=== PATIENT | female | born 1980 | race Hispanic/Latino ===

== ENCOUNTER 2021-03-30 05:41 | Observation (INO) | payer OTHER ==
[2021-03-29 12:37] LABS: BASOPHILS % (AUTO) 0.8 % (0.0-5.0); HEMATOCRIT 40.8 % (36-48); LYMPHOCYTES % (AUTO) 32.4 % (21.0-51.0); MEAN CORPUSCULAR HEMOGLOBIN 29.5 pg (27.0-33.0); MEAN CORPUSCULAR HGB CONC 33.1 g/dL (32.0-36.0); MEAN CORPUSCULAR VOLUME 89.3 fL (79-99); MONOCYTES % (AUTO) 7.7 % (3.0-13.0); NEUTROPHILS % (AUTO) 57.8 % (40.0-77.0); PLATELET COUNT (AUTO) 408 K/uL (130-400); RED BLOOD CELL COUNT(AUTO) 4.57 MIL/uL (4.00-5.50); RED CELL DISTRIBUTION WIDTH 12.7 % (11.0-15.5); WHITE BLOOD COUNT (AUTO) 7.3 K/uL (4.8-10.8)
[2021-03-30] VITALS (25 sets, daily range): BP systolic 96–136; BP diastolic 59–84
[~2021-03-30] VITALS: Ht 162.6 cm; Wt 64.0 kg
[2021-03-30] MEDS ORDERED: CLINDAMYCIN IVPB 600MG/50ML 50 ML IV ONE (06:03)
[2021-03-30] MEDS ORDERED: LACTATED RINGERS 1000ML 1,000 ML IV ONE (06:03)
[2021-03-30] MEDS ORDERED: LEVOFLOXACIN 500 MG/D5W 100 ML 100 ML ONE (09:10)
[2021-03-30] MEDS ORDERED: LIDOCAINE PF 100MG/5ML (2%) SYRINGE 5ML ONE (09:22)
[2021-03-30] MEDS ORDERED: MIDAZOLAM HCL 1 MG/ML 2ML VIAL ONE (09:23)
[2021-03-30] MEDS ORDERED: PROPOFOL 10 MG/ML 20ML VIAL IV ONE (09:23)
[2021-03-30] MEDS ORDERED: ACETAMINOPHEN 500 MG TABLET ONE (09:23)
[2021-03-30] MEDS ORDERED: ONDANSETRON 4MG INJ ONE ×2 (09:24→09:31)
[2021-03-30] MEDS ORDERED: ROCURONIUM 10MG/1ML SYR 10 MG/ML ML ONE (09:24)
[2021-03-30] MEDS ORDERED: FENTANYL CITRATE PF 50 MCG/1 ML 2ML VIAL ONE ×3 (09:24→11:26)
[2021-03-30] MEDS ORDERED: ACETAMINOPHEN 500 MG TABLET PO SCH (09:30)
[2021-03-30] MEDS ORDERED: MAGNESIUM SULFATE 1 GM/2 ML VIAL ONE (09:34)
[2021-03-30] MEDS ORDERED: KETAMINE 50MG/ML SYRINGE 50 MG/ML DISP.SYRIN IV ONE (09:34)
[2021-03-30] MEDS ORDERED: EPHEDRINE SULFATE 50 MG/ML AMPULE ONE (10:17)
[2021-03-30] MEDS ORDERED: GLYCOPYRROLATE 1 MG/5 ML SYRINGE ONE (10:43)
[2021-03-30] MEDS ORDERED: MEPERIDINE-PF 25 MG/ML SYG ONE ×2 (11:11→11:19)
[2021-03-30] MEDS ORDERED: PROMETHAZINE HCL 25 MG/ML 1ML AMPULE IM PRN (12:30)
[2021-03-30] MEDS ORDERED: BISACODYL 10 MG SUPP.RECT RC PRN (12:30)
[2021-03-30] MEDS ORDERED: ONDANSETRON 4MG INJ IVP PRN (12:30)
[2021-03-30] MEDS ORDERED: DOCUSATE SODIUM 100 MG CAP PO PRN (12:30)
[2021-03-30] MEDS ORDERED: IBUPROFEN 600 MG TABLET PO PRN (12:30)
[2021-03-30] MEDS ORDERED: ACETAMINOPHEN WITH CODEINE 1 TAB TAB PO PRN (12:30)
[2021-03-30] MEDS: MEPERIDINE-PF 75 MG/ML SYG IM PRN ×2 (12:32→17:00)
[2021-03-30] MEDS: PROMETHAZINE HCL 25 MG/ML 1ML AMPULE IM PRN ×2 (12:32→16:59)
[2021-03-30] MEDS: DEXTROSE 5 %-0.45 % NACL 1,000 ML IV PRN ×2 (12:34→21:06)
[2021-03-31] MEDS: PROMETHAZINE HCL 25 MG/ML 1ML AMPULE IM PRN ×2 (00:28→04:57)
[2021-03-31] MEDS: MEPERIDINE-PF 75 MG/ML SYG IM PRN ×2 (00:32→04:58)
[2021-03-31] MEDS ORDERED: IBUPROFEN 800 MG TAB PO PRN (01:00)
[2021-03-31 03:25] VITALS: BP 105/71
[2021-03-31] MEDS: DEXTROSE 5 %-0.45 % NACL 1,000 ML IV PRN (04:47)
[2021-03-31 05:50] LABS: HEMATOCRIT 36.8 % (36-48); MEAN CORPUSCULAR HGB CONC 32.6 g/dL (32.0-36.0); MEAN CORPUSCULAR VOLUME 88.9 fL (79-99); RED BLOOD CELL COUNT(AUTO) 4.14 MIL/uL (4.00-5.50); RED CELL DISTRIBUTION WIDTH 12.7 % (11.0-15.5); WHITE BLOOD COUNT (AUTO) 15.9 K/uL (4.8-10.8)
[2021-03-31] MEDS ORDERED: HYDROCODONE/ACETAMINOPHEN 5/325 MG TAB PO PRN (06:00)
[2021-03-31 07:15] VITALS: BP 103/51
[2021-03-31] MEDS: SIMETHICONE 80 MG TAB.CHEW PO PRN ×2 (07:54→13:21)
[2021-03-31 11:10] VITALS: BP 96/61
== END 2021-03-31 14:30 | disposition home or self-care (01) ==
LOC: DAH 05:41 → WSH 05:42
PROVIDERS: ADMIT Obstetrics & Gynecology; ATTEND Obstetrics & Gynecology
DX: N92.1 Excessive and frequent menstruation with irregular cycle (principal); Z20.822 Contact with and (suspected) exposure to COVID-19; K46.9 Unspecified abdominal hernia without obstruction or gangrene; N73.6 Female pelvic peritoneal adhesions (postinfective); R68.89 Other general symptoms and signs; Z90.49 Acquired absence of other specified parts of digestive tract; Z98.51 Tubal ligation status; Z79.899 Other long term (current) drug therapy; Z98.890 Other specified postprocedural states
CPT/HCPCS: 36415 ×2; 58260; 84703; 85025; 85027; 86850; 86900; 86901; 87635; 96372 ×2; A4215; A4221; A4222; A4223 ×2; A4351 ×2; A4510; A4600 ×2; A4606; A4663; A6260; C9803; G0378 ×30; J1956; J2001; J2175 ×6; J2250; J2405 ×2; J2550 ×4; J2704; J3010 ×3; J3475; J3490 ×4; J7120 ×2